=== PATIENT | female | born 1975 | race Caucasian/White ===

== ENCOUNTER → 2017-02-05 | Outpatient (CLI) | payer OTHER | LOC: CIMAGING 08:03 | PROVIDERS: ATTEND Family Medicine | DX: R10.10 Upper abdominal pain, unspecified (principal); Z87.442 Personal history of urinary calculi | CPT/HCPCS: 76705-PO ==

== ENCOUNTER → 2018-12-30 | Outpatient (CLI) | payer OTHER | LOC: BRMIMAGING 10:40 | PROVIDERS: ATTEND Internal Medicine | DX: M25.852 Other specified joint disorders, left hip (principal) | CPT/HCPCS: 73521-PO ==